=== PATIENT | male | born 1935 | race Caucasian/White ===

== ENCOUNTER 2017-10-21 10:49 | Observation (INO) | payer MEDICARE, BC ==
[~2017-10-21] VITALS: Ht 186.7 cm; Wt 82.2 kg
[2017-10-21] VITALS (9 sets, daily range): BP systolic 126–167; BP diastolic 59–79; PULSE 55–78; RESP 14–20; TEMP 97.7–98.4; O2SAT 96–98
[~2017-10-21 10:49] MED LIST: ASPI81 PO; FISH1000 PO; METH1TAB29 PO; METR1GEL2 EX; NIAS10004 PO; OMEP20CA5 PO; OYST500T77 PO; VASE1025 PO; ZOCO40TA PO
[2017-10-21] MEDS ORDERED: SODIUM CHLORIDE 0.9% FLUSH 10 ML FLUSH IVF PRN (12:00)
--- NOTE | 2017-10-21 12:02 | PD ---
HPI Chief Complaint: Cold / Flu Symptoms Time Seen by Provider: 11:30 Travel History International Travel<30 days: No Contact w/Intl Traveler<30days: No Traveled to known affect area: No History of Present Illness HPI 82-year-old male here for evaluation of generalized malaise, epigastric abdominal discomfort, possible syncopal episode. Patient reports having epigastric discomfort for the last month ever since taking diclofenac. His primary care physician and advised that he stop this medication and start taking Zantac. Today he was found on the floor by his and the patient is unsure how he got to the floor. He denies injuring himself. He denies any history of cardiac disease. He does have some epigastric discomfort, but denies chest pain. No fevers or recent illness. No melena or hematochezia. PFSH Past Medical History Arthritis: Yes Cancer: Yes (PROSTATE 2006) High Cholesterol: Yes Diabetes: No GERD: Yes Glaucoma: No Hepatitis: No Hiatal Hernia: No Hypertension: Yes Inguinal Hernia: Yes (BILAT REPAIR) Medical other: Yes (GERD) Thyroid Disease: No Tetanus Vaccination: > 5 Years Influenza Vaccination: Yes Past Surgical History Abdominal Surgery: Yes (hernia repair BILAT GROINS) Cardiac Surgery: No Ear Surgery: No Endocrine Surgery: No Eye Surgery: Yes (CATARACT BOTH EYES REPAIRED) Genitourinary Surgery: Yes ( PROSTATE REMOVAL R/T CANCER) Gynecologic Surgery: No Neurologic Surgery: Yes (CERVICAL & LUMBAR DISKECTOMIES) Oral Surgery: Yes (T & A) Pacemaker: No Thoracic Surgery: No Tonsillectomy: Yes Other Surgery: Yes (KAREEM INGUINAL HERNIA REPAIR) Social History Alcohol Use: Yes (OCCAS. ) Tobacco Use: No Substance Use: No Allergies-Medications (Allergen,Severity, Reaction): Coded Allergies: amoxicillin (Verified Adverse Reaction, Intermediate, DIZZINESS, 10/21/17) clavulanic acid (Verified Adverse Reaction, Intermediate, DIZZINESS, ) Reported Meds & Prescriptions Reported Meds & Active Scripts Active Reported Zantac (Ranitidine HCl) 150 Mg Tab 75 Mg PO DAILY Vitamin B-12 (Cyanocobalamin) 1,000 Mcg Tab 1,000 Mcg PO DAILY Triamcinolone Topical 0.025 % Oint 1 Applic TOPICAL BID Simvastatin 40 Mg Tab 1.5 Tab PO HS Sertraline (Sertraline HCl) 50 Mg Tab 50 Mg PO DAILY Probiotic (Lactobacillus Acidophilus) 10 Billion Cell Cap 1 Cap PO TIDAC Preservision Areds (Multiple Vitamins W/ Minerals) 1 Tab 1 Tab PO DAILY [place]-3 Fish Oil/Vitamin (Fish Oil-Cholecalciferol) 1,000-1,000 Mg Cap 1 Cap PO BID Metronidazole Topical 0.75 % Lot 1 Applic TOPICAL BID Losartan-Hydrochlorothiazide 50-12.5 Mg Tab 1 Tab PO DAILY Fluticasone Nasal [place] 50 Mcg/Act Naspr 100 Mcg EACH NARE DAILY PRN 50 mcg/spray Donepezil 10 Mg Tab 10 Mg PO HS Diclofenac Sodium DR (Diclofenac Sodium) 50 Mg Tabdr 50 Mg PO BID PRN Bladder 2.2 (Nutritional Supplements) 200 Mcg-5 Mg-250 Mcg Tab 1 Tab PO DAILY Aspirin Low Dose (Aspirin) 81 Mg Chew 81 Mg CHEW DAILY Review of Systems Except as stated in HPI: all other systems reviewed are Neg Physical Exam Narrative GENERAL: Well-developed, well-nourished, awake, alert, comfortable, no apparent distress. SKIN: Focused skin assessment warm/dry. HEAD: Atraumatic. Normocephalic. EYES: Pupils equal and round. No scleral icterus. No injection or drainage. ENT: No nasal bleeding or discharge. Mucous membranes pink and moist. NECK: Trachea midline. No JVD. CARDIOVASCULAR: Regular rate and rhythm. RESPIRATORY: No accessory muscle use. Clear to auscultation. Breath sounds equal bilaterally. GASTROINTESTINAL: Abdomen soft, nondistended. Mild epigastric tenderness without peritoneal signs. Normal bowel sounds. No hernias. MUSCULOSKELETAL: No obvious deformities. No clubbing. No cyanosis. No edema. NEUROLOGICAL: Awake and alert. No obvious cranial nerve deficits. Motor grossly within normal limits. Normal speech. PSYCHIATRIC: Appropriate mood and affect; insight and judgment normal. Data Data Last Documented VS Vital Signs Date Time Temp Pulse Resp B/P (MAP) Pulse Ox O2 Delivery O2 Flow Rate FiO2 10/21/17 13:05 59 14 145/62 (89) 97 Room Air 10/21/17 11:08 97.7 Orders Orders Electrocardiogram (10/21/17 11:54) Complete Blood Count With Diff (10/21/17 11:54) Comprehensive Metabolic Panel (10/21/17 11:54) Ckmb (Isoenzyme) Profile (10/21/17 11:54) Troponin I (10/21/17 11:54) Act Partial Throm Time (Ptt) (10/21/17 11:54) Prothrombin Time / Inr (Pt) (10/21/17 11:54) Urinalysis - C+S If Indicated (10/21/17 11:54) Chest, Single Ap (10/21/17 11:54) Ct Brain W/O Iv Contrast(Rout) (10/21/17 11:54) Ecg Monitoring (10/21/17 11:54) Iv Access Insert/Monitor (10/21/17 11:54) Oximetry (10/21/17 11:54) Sodium Chloride 0.9% Flush (Ns Flush) (10/21/17 12:00) Influenzae A/B Antigen (10/21/17 11:54) Lipase (10/21/17 11:54) Ct Abd/Pel W Iv Contrast(Rout) (10/21/17 11:54) CKMB (10/21/17 12:10) CKMB% (10/21/17 12:10) Cath For Specimen (10/21/17 12:52) Iohexol 350 Inj (Omnipaque 350 Inj) (10/21/17 13:22) Labs Laboratory Tests Test 10/21/17 12:10 10/21/17 13:00 White Blood Count 7.8 TH/MM3 Red Blood Count 4.05 MIL/MM3 Hemoglobin 13.0 GM/DL Hematocrit 38.7 % Mean Corpuscular Volume 95.6 FL Mean Corpuscular Hemoglobin 32.1 PG Mean Corpuscular Hemoglobin Concent 33.6 % Red Cell Distribution Width 12.5 % Platelet Count 159 TH/MM3 Mean Platelet Volume 7.6 FL Neutrophils (%) (Auto) 94.6 % Lymphocytes (%) (Auto) 3.2 % Monocytes (%) (Auto) 1.7 % Eosinophils (%) (Auto) 0.1 % Basophils (%) (Auto) 0.4 % Neutrophils # (Auto) 7.5 TH/MM3 Lymphocytes # (Auto) 0.2 TH/MM3 Monocytes # (Auto) 0.1 TH/MM3 Eosinophils # (Auto) 0.0 TH/MM3 Basophils # (Auto) 0.0 TH/MM3 CBC Comment DIFF FINAL Differential Comment Prothrombin Time 10.4 SEC Prothromb Time International Ratio 1.0 RATIO Activated Partial Thromboplast Time 24.0 SEC Blood Urea Nitrogen 28 MG/DL Creatinine 0.77 MG/DL Random Glucose 153 MG/DL Total Protein 7.1 GM/DL Albumin 3.8 GM/DL Calcium Level 8.6 MG/DL Alkaline Phosphatase 72 U/L Aspartate Amino Transf (AST/SGOT) 31 U/L Alanine Aminotransferase (ALT/SGPT) 31 U/L Total Bilirubin 0.5 MG/DL Sodium Level 135 MEQ/L Potassium Level 4.0 MEQ/L Chloride Level 100 MEQ/L Carbon Dioxide Level 28.8 MEQ/L Anion Gap 6 MEQ/L Estimat Glomerular Filtration Rate 97 ML/MIN Total Creatine Kinase 242 U/L Creatine Kinase MB 6.4 NG/ML Troponin I LESS THAN 0.02 NG/ML Lipase 283 U/L Urine Collection Type VOIDED Urine Color YELLOW Urine Turbidity CLEAR Urine pH 6.0 Urine Specific [place] 1.024 Urine Protein NEG mg/dL Urine Glucose (UA) NEG mg/dL Urine Ketones TRACE mg/dL Urine Occult Blood NEG Urine Nitrite NEG Urine Bilirubin NEG Urine Leukocyte Esterase NEG Urine WBC 0-2 /hpf Urine Squamous Epithelial Cells 0-3 /hpf Urine Mucus FEW /lpf Microscopic Urinalysis Comment CULT NOT INDICATED MDM Medical Decision Making Medical Screen Exam Complete: Yes Emergency Medical Condition: Yes Interpretation(s) EKG: Sinus, rate 52, normal axis, normal intervals, no acute ischemic abnormality. Differential Diagnosis Syncope, dysrhythmia, electrolyte abnormality, intra-abdominal abnormality, anemia, intracranial abnormality, UTI Narrative Course Initial vital signs show heart rate 55, blood pressure 167/71, pulse ox 98% on room air, oral temp of 97.7F. CBC: WBC 7.8, hemoglobin 13, hematocrit 38.7, platelets 159, neutrophils 74.6%. CMP is unremarkable. Lipase is 283. UA is not suggestive of UTI. Chest x-ray: No acute disease. CT head: CONCLUSION: Negative for acute process. CT abdomen pelvis: CONCLUSION: 1. Large amount of stool within the rectum suggesting possible fecal impaction. 2. Minimal aneurysmal dilation of the abdominal aorta at 3 cm. 3. Punctate granulomatous calcifications within the spleen. 4. No free air or free fluid identified. No findings to indicate bowel obstruction are evident. Patient was made aware of all findings. He is resting comfortably. He does have moderate coronary calcifications seen on the CT of his abdomen. Sounds as though he may have had a syncopal episode today. His EKG shows sinus bradycardia. Because of this he will be admitted for further treatment and evaluation. His television cable installer is Dr. Tracey. Diagnosis Primary Impression: Syncope Qualified Codes: R55 - Syncope and collapse Additional Impressions: Bradycardia Chest pain Qualified Codes: R07.9 - Chest pain, unspecified Admitting Information Admitting Physician Requests: Shaka Bernal MD Oct 21, 2017 12:02
[2017-10-21 12:26] LABS: AUTOMATED NEUTROPHIL # 7.5 TH/MM3 (1.8-7.7); BASOPHIL % 0.4 % (0.0-2.0); EOSINOPHIL % 0.1 % (0.0-4.0); HEMATOCRIT 38.7 % (39.0-51.0); LYMPH % 3.2 % (9.0-44.0); LYMPHOCYTE # 0.2 TH/MM3 (1.0-4.8); MEAN CELL VOLUME 95.6 FL (80.0-100.0); MEAN CORPUSCULAR HEMOGLOBIN 32.1 PG (27.0-34.0); MEAN CORPUSCULAR HGB CONC 33.6 % (32.0-36.0); MEAN PLATELET VOLUME 7.6 FL (7.0-11.0); MONO % 1.7 % (0.0-8.0); MONOCYTE # 0.1 TH/MM3 (0-0.9); NEUT % 94.6 % (16.0-70.0); PLATELET COUNT 159 TH/MM3 (150-450); RED BLOOD COUNT 4.05 MIL/MM3 (4.50-5.90); RED CELL DISTRIBUTION WIDTH 12.5 % (11.6-17.2); WHITE BLOOD COUNT 7.8 TH/MM3 (4.0-11.0)
[2017-10-21 12:38] LABS: CHLORIDE 100 MEQ/L (98-107); SODIUM (NA) 135 MEQ/L (136-145)
[2017-10-21 12:41] LABS: CALCIUM 8.6 MG/DL (8.5-10.1)
--- NOTE | 2017-10-21 12:41 | RADRPT ---
EXAM DATE/TIME: 10/21/2017 12:23 [facility] COMPARISON: No previous studies available for comparison. INDICATIONS : Vomiting and Dizzy MEDICAL HISTORY : None. SURGICAL HISTORY : None. ENCOUNTER: Initial ACUITY: 1 day PAIN SCORE: 0/10 LOCATION: chest FINDINGS: A single view of the chest demonstrates the lungs to be symmetrically aerated without evidence of mas s, infiltrate or effusion. The cardiomediastinal contours are unremarkable. Osseous structures are intact. CONCLUSION: No acute disease. Remigio Mulligan MD on October 21, 2017 at 12:39 Board Certified Radiologist. This report was verified electronically.
[2017-10-21 12:42] LABS: ALBUMIN 3.8 GM/DL (3.4-5.0); BICARBONATE 28.8 MEQ/L (21.0-32.0); BLOOD UREA NITROGEN 28 MG/DL (7-18); GLUCOSE,RANDOM 153 MG/DL (74-106); PROTHROMBIN TIME - PATIENT 10.4 SEC (9.8-11.6)
[2017-10-21 12:45] LABS: ALT (GPT) 31 U/L (12-78); AST (GOT) 31 U/L (15-37); CREATININE 0.77 MG/DL (0.60-1.30); GLOMERULAR FILTRATION RATE 97 ML/MIN (>89)
[2017-10-21 12:46] LABS: TOTAL BILIRUBIN ADULT 0.5 MG/DL (0.2-1.0); TOTAL PROTEIN 7.1 GM/DL (6.4-8.2)
[2017-10-21 12:47] LABS: ALKALINE PHOSPHATASE 72 U/L (45-117)
[2017-10-21 12:50] LABS: TROPONIN I LESS THAN 0.02 NG/ML (0.02-0.05)
[2017-10-21] MEDS ORDERED: METR0.753 TOPICAL (13:00)
[2017-10-21] MEDS ORDERED: SERT-132 PO (13:00)
[2017-10-21] MEDS ORDERED: LACTCAP8 PO (13:00)
[2017-10-21] MEDS ORDERED: ASPI81CH6 CHEW (13:00)
[2017-10-21] MEDS ORDERED: DONE10TA7 PO (13:00)
[2017-10-21] MEDS ORDERED: OCUVTAB4 PO (13:00)
[2017-10-21] MEDS ORDERED: OMEGCAP PO (13:00)
[2017-10-21] MEDS ORDERED: BLADTAB PO (13:00)
[2017-10-21] MEDS ORDERED: FLUT50SP EACH NARE (13:00)
[2017-10-21] MEDS ORDERED: DICL50TA3 PO (13:00)
[2017-10-21] MEDS ORDERED: ZANT150T2 PO (13:00)
[2017-10-21] MEDS ORDERED: VITA10002 PO (13:00)
[2017-10-21] MEDS ORDERED: TRIA0.022 TOPICAL (13:00)
[2017-10-21] MEDS ORDERED: SIMV40TA PO (13:00)
[2017-10-21] MEDS ORDERED: LOSA50TA2 PO (13:00)
[2017-10-21 13:10] LABS: BILIRUBIN, URINE NEG (NEG); BLOOD, URINE NEG (NEG); GLUCOSE,URINE NEG (NEG); KETONE, URINE TRACE mg/dL (NEG); NITRITE,URINE NEG (NEG); URINE LEUKOCYTE ESTERASE NEG (NEG)
[2017-10-21] MEDS ORDERED: IOHEXOL 350 MG/ML 10 ML VIAL (for RAD DIAG) IVCONTRAST ONE (13:22)
[2017-10-21 13:25] LABS: URINE COLOR YELLOW (YELLW/STRAW)
[2017-10-21 13:26] LABS: MUCUS URINE FEW /lpf (OCC); SQUAMOUS EPITHELIAL CELL URINE 0-3 /hpf (0-5); WBC, URINE 0-2 /hpf (0-5)
--- NOTE | 2017-10-21 13:37 | RADRPT ---
EXAM DATE/TIME: 10/21/2017 13:13 [facility] COMPARISON: No previous studies available for comparison. INDICATIONS : Nausea, vomiting and dizziness. RADIATION DOSE: 62.06 CTDIvol (mGy) MEDICAL HISTORY : Hypertension. Carcinoma, prostate. Gastroesophageal reflux disease. SURGICAL HISTORY : Inguinal hernia repair. Prostatectomy.Spine surgery. ENCOUNTER: Subsequent ACUITY: 2 days PAIN SCALE: 0/10 LOCATION: cranial TECHNIQUE: Multiple contiguous axial images were obtained of the head. Using automated exposure control and adj ustment of the mA and/or kV according to patient size, radiation dose was kept as low as reasonably a chievable to obtain optimal diagnostic quality images. DICOM format image data is available electro nically for review and comparison. FINDINGS: CEREBRUM: The ventricles are normal for age. No evidence of midline shift, mass lesion, hemorrhage or acute in farction. No extra-axial fluid collections are seen. POSTERIOR FOSSA: The cerebellum and brainstem are intact. The 4th ventricle is midline. The cerebellopontine angle i s unremarkable. EXTRACRANIAL: The visualized portion of the orbits is intact. SKULL: The calvaria is intact. No evidence of skull fracture. CONCLUSION: Negative for acute process. Jose Bullock MD FACR on October 21, 2017 at 13:34 Board Certified Radiologist. This report was verified electronically.
--- NOTE | 2017-10-21 13:39 | RADRPT ---
EXAM DATE/TIME: 10/21/2017 13:18 [facility] COMPARISON: CT BRAIN W/O CONTRAST, October 21, 2017, 13:13. INDICATIONS : Nausea, vomiting and dizziness. Non-specific abdominal pain. IV CONTRAST: 95 cc Omnipaque 350 (iohexol) IV ORAL CONTRAST: No oral contrast ingested. RADIATION DOSE: 9.43 CTDIvol (mGy) MEDICAL HISTORY : Hypertension. Carcinoma, prostate. Gastroesophageal reflux disease. SURGICAL HISTORY : Inguinal hernia repair. Prostatectomy.Spine surgery. ENCOUNTER: Initial ACUITY: 2 days PAIN SCALE: 3/10 LOCATION: pelvis abdomen TECHNIQUE: Volumetric scanning of the abdomen and pelvis was performed. Using automated exposure control and ad justment of the mA and/or kV according to patient size, radiation dose was kept as low as reasonably achievable to obtain optimal diagnostic quality images. DICOM format image data is available electro nically for review and comparison. FINDINGS: Imaging through the lung bases demonstrates chronic interstitial changes suggesting COPD. There is a small hiatal hernia. There is moderate atherosclerotic plaquing in the coronary arteries. The appearance of the liver is within normal limits. There are punctate granulomatous calcifications within the spleen. The pancreas, adrenal glands and kidneys are unremarkable in appearance. No free intraperitoneal air or free intraperitoneal fluid is seen within the upper abdomen. The abdominal aorta is slightly aneurysmal in the infrarenal segment measuring 3 cm.. There is mild a therosclerotic plaquing. No retroperitoneal adenopathy is evident. The visualized loops of small large bowel the upper abdomen are unremarkable. Imaging through the pelvis is provided. The exam demonstrates a large amount of stool within the rect um. There is no free fluid within the pelvis. No iliac or inguinal adenopathy is seen. The visualized bony structures demonstrate degenerative changes but are otherwise intact. CONCLUSION: 1. Large amount of stool within the rectum suggesting possible fecal impaction. 2. Minimal aneurysmal dilation of the abdominal aorta at 3 cm. 3. Punctate granulomatous calcifications within the spleen. 4. No free air or free fluid identified. No findings to indicate bowel obstruction are evident. Richard Bullock MD on October 21, 2017 at 13:32 Board Certified Radiologist. This report was verified electronically.
[2017-10-21] MEDS ORDERED: NITROGLYCERIN 0.4 MG SL 25 TABS/BTL SL PRN (15:15)
[2017-10-21] MEDS ORDERED: SODIUM CHLORID 0.9% 500 ML INJ 500 ML IV ONE (16:15)
[2017-10-21] MEDS ORDERED: SODIUM CHLOR 0.9% 1000 ML INJ 1,000 ML IV ONE (16:15)
--- NOTE | 2017-10-21 16:15 | HHI.HP ---
[facility] Roel Christine M.D. Admission Diagnosis syncope, bradycardia, chest pain Diagnoses: Chief Complaint: Syncope Travel History International Travel<30 Days: No Contact w/Intl Traveler <30 Da: No Traveled to Known Affected Are: No History of Present Illness 82-year-old white male brought to the hospital due to syncope. Patient reports having some nausea last night, went over to the restroom and felt very lightheaded and thus he lowered himself to the floor and a crawling position so that he does not fall and strike his head. He was able to call over back to the bedroom and eventually get up and go back to bed with resolution of the nausea. This morning a similar incident happened when he was walking and felt nausea again;but this time he he has a gap in memory and only recalls waking up on the floor with his looking at him. That is when the etc. bring her to the hospital. The patient denies any chest pain or levy shortness of breath. He does report actually walking 2 miles yesterday with his dogs during the daytime prior to the nighttime incidents. He denies any coronary artery disease, says he had a negative stress test 2-3 years ago which was normal. He does take blood pressure medication including a diuretic. EKG which I independently reviewed showed mild sinus bradycardia in the 50s. Review of Systems Except as stated in HPI: all other systems reviewed are Neg Past Family Social History Allergies: Coded Allergies: amoxicillin (Verified Adverse Reaction, Intermediate, DIZZINESS, 10/21/17) clavulanic acid (Verified Adverse Reaction, Intermediate, DIZZINESS, ) Physical Exam Vital Signs Vital Signs Date Time Temp Pulse Resp B/P (MAP) Pulse Ox O2 Delivery O2 Flow Rate FiO2 10/21/17 14:50 77 14 126/62 (83) 98 Room Air 10/21/17 13:05 59 14 145/62 (89) 97 Room Air 10/21/17 12:15 98 Room Air 10/21/17 11:08 97.7 55 16 167/71 (103) 98 Physical Exam GENERAL: This is a well-nourished, well-developed patient, in no apparent distress. SKIN: No rashes, ecchymoses or lesions. Cool and dry. HEAD: Atraumatic. Normocephalic. EYES: Extraocular motions intact. No scleral icterus. No injection or drainage. ENT: Nose without bleeding, purulent drainage or septal hematoma. NECK: Trachea midline. No JVD or lymphadenopathy. Supple, nontender, no meningeal signs. CARDIOVASCULAR: Regular rate and rhythm without murmurs, gallops, or rubs. RESPIRATORY: Clear to auscultation. Breath sounds equal bilaterally. No wheezes , rales, or rhonchi. GASTROINTESTINAL: Abdomen soft, non-tender, nondistended. MUSCULOSKELETAL: Extremities without clubbing, cyanosis, or edema. NEUROLOGICAL: Awake and alert. Five out of 5 muscle strength in all muscle groups. Normal speech. able to stand, - romberg Laboratory Laboratory Tests Test 10/21/17 12:10 10/21/17 13:00 White Blood Count 7.8 Red Blood Count 4.05 Hemoglobin 13.0 Hematocrit 38.7 Mean Corpuscular Volume 95.6 Mean Corpuscular Hemoglobin 32.1 Mean Corpuscular Hemoglobin Concent 33.6 Red Cell Distribution Width 12.5 Platelet Count 159 Mean Platelet Volume 7.6 Neutrophils (%) (Auto) 94.6 Lymphocytes (%) (Auto) 3.2 Monocytes (%) (Auto) 1.7 Eosinophils (%) (Auto) 0.1 Basophils (%) (Auto) 0.4 Neutrophils # (Auto) 7.5 Lymphocytes # (Auto) 0.2 Monocytes # (Auto) 0.1 Eosinophils # (Auto) 0.0 Basophils # (Auto) 0.0 CBC Comment DIFF FINAL Differential Comment Prothrombin Time 10.4 Prothromb Time International Ratio 1.0 Activated Partial Thromboplast Time 24.0 Blood Urea Nitrogen 28 Creatinine 0.77 Random Glucose 153 Total Protein 7.1 Albumin 3.8 Calcium Level 8.6 Alkaline Phosphatase 72 Aspartate Amino Transf (AST/SGOT) 31 Alanine Aminotransferase (ALT/SGPT) 31 Total Bilirubin 0.5 Sodium Level 135 Potassium Level 4.0 Chloride Level 100 Carbon Dioxide Level 28.8 Anion Gap 6 Estimat Glomerular Filtration Rate 97 Total Creatine Kinase 242 Creatine Kinase MB 6.4 Troponin I LESS THAN 0.02 Lipase 283 Urine Collection Type VOIDED Urine Color YELLOW Urine Turbidity CLEAR Urine pH 6.0 Urine Specific [place] 1.024 Urine Protein NEG Urine Glucose (UA) NEG Urine Ketones TRACE Urine Occult Blood NEG Urine Nitrite NEG Urine Bilirubin NEG Urine Leukocyte Esterase NEG Urine WBC 0-2 Urine Squamous Epithelial Cells 0-3 Urine Mucus FEW Microscopic Urinalysis Comment CULT NOT INDICATED Date/Time Source Procedure Growth Status 10/21/17 12:10 Nasal Washing Influenza Types A,B Antigen (DIXIE) - Final NEGATIVE FOR FLU A AND B ANTIGEN.... Complete Result Diagram: 10/21/17 1210 10/21/17 1210 Imaging Last Impressions Head CT 10/21/17 1154 Impressions: Service Date/Time: Saturday, October 21, 2017 13:13 - CONCLUSION: Negative for acute process. Jose Bullock MD FACR Chest X-Ray 10/21/17 1154 Signed Impressions: Service Date/Time: Saturday, October 21, 2017 12:23 - CONCLUSION: No acute disease. Remigio Mulligan MD Abdomen/Pelvis CT 10/21/17 1154 Impressions: Service Date/Time: Saturday, October 21, 2017 13:18 - CONCLUSION: 1. Large amount of stool within the rectum suggesting possible fecal impaction. 2. Minimal aneurysmal dilation of the abdominal aorta at 3 cm. 3. Punctate granulomatous calcifications within the spleen. 4. No free air or free fluid identified. No findings to indicate bowel obstruction are evident. MD Fidelia Mckeoni VTE Risk Assessment Caprini VTE Risk Assessment: Mod/High Risk (score >= 2) Caprini Risk Assessment Model Point Value = 1 Point Value = 2 Point Value = 3 Point Value = 5 Age 41-60 Minor surgery BMI > 25 kg/m2 Swollen legs Varicose veins or History of unexplained or recurrent spontaneous Oral contraceptives or hormone replacement Sepsis (< 1 month) Serious lung disease, including pneumonia (< 1 month) Abnormal pulmonary function Acute myocardial infarction Congestive heart failure (< 1 month) History of inflammatory bowel disease Medical patient at bed rest Age 61-74 Arthroscopic surgery Major open surgery (> 45 min) Laparoscopic surgery (> 45 min) Malignancy Confined to bed (> 72 hours) Immobilizing plaster cast Central venous access Age >= 75 History of VTE Family history of VTE Factor V Leiden Prothrombin [id number] Lupus anticoagulant Anticardiolipin antibodies Elevated serum homocysteine Heparin-induced thrombocytopenia Other congenital or acquired thrombophilia Stroke (< 1 month) Elective arthroplasty Hip, pelvis, or leg fracture Acute spinal cord injury (< 1 month) Prophylaxis Regimen Total Risk Factor Score Risk Level Prophylaxis Regimen 0-1 Low Early ambulation 2 Moderate Order ONE of the following: *Sequential Compression Device (SCD) *Heparin 5000 units SQ BID 3-4 Higher Order ONE of the following medications: *Heparin 5000 units SQ TID *Enoxaparin/Lovenox 40 mg SQ daily (WT < 150 kg, CrCl > 30 mL/min) *Enoxaparin/Lovenox 30 mg SQ daily (WT < 150 kg, CrCl > 10-29 mL/min) *Enoxaparin/Lovenox 30 mg SQ BID (WT < 150 kg, CrCl > 30 mL/min) AND/OR *Sequential Compression Device (SCD) 5 or more Highest Order ONE of the following medications: *Heparin 5000 units SQ TID (Preferred with Epidurals) *Enoxaparin/Lovenox 40 mg SQ daily (WT < 150 kg, CrCl > 30 mL/min) *Enoxaparin/Lovenox 30 mg SQ daily (WT < 150 kg, CrCl > 10-29 mL/min) *Enoxaparin/Lovenox 30 mg SQ BID (WT < 150 kg, CrCl > 30 mL/min) AND *Sequential Compression Device (SCD) Assessment and Plan Assessment and Plan syncope -Etiology could be possible sinus bradycardia while BP is stable here, monitor w / telemetry. will obtain orthostatic V/S pre and post NS bolus. - TSH wnl. f/u on mg and phos. -I attempted to call tricot knitter by phone but [place]. Official cardiology consult placed. - may get holter upon discharge SCDs in case any intervention is anticipated In total, the time spent with the patient was over 35 minute of which more than 50% of patient care was spent discussing his or her care and counseling the patient and corresponding caregivers. Valdemar Galindo MD Oct 21, 2017 16:14
[2017-10-21 16:38] LABS: MAGNESIUM 2.3 MG/DL (1.5-2.5)
[2017-10-21 16:42] LABS: PHOSPHORUS 3.5 MG/DL (2.5-4.9)
[2017-10-21] MEDS ORDERED: ATORVASTATIN 40 MG TAB PO SCH (21:00)
[2017-10-21] MEDS ORDERED: DONEPEZIL HCL 5 MG TAB PO SCH (21:00)
[2017-10-21] MEDS: SERTRALINE HCL 50 MG TAB PO SCH (22:14)
[2017-10-22] VITALS: BP 150/66; PULSE 62; RESP 20; TEMP 97.5; O2SAT 95
[2017-10-22 04:00] VITALS: BP 136/63; PULSE 59; RESP 20; TEMP 97.7; O2SAT 95
--- NOTE | 2017-10-22 07:33 | MB ---
cc: NASEEM WANG DATE OF CONSULTATION 10/21/2017 REASON FOR CONSULTATION Mr. Moser is an 82-year-old white male patient of Dr. Tracey who was brought to the hospital after he developed dizziness and possible brief loss of consciousness. He felt nauseated and went back to vomit. He developed dizziness and light headedness. He then went back and lowered himself on the ground. He then went to sleep and after this happened he felt nauseated again and woke up on the floor with his looking at him. He did not have any chest pain or shortness of breath. He is active, walking his dog. He had a stress test within the last three weeks in Dr. Tracey's office which was unremarkable. PAST MEDICAL HISTORY Positive for: 1. Arthritis 2. Gastroesophageal reflux disease 3. Bilateral hernia surgery 4. Hypertension 5. Prostate cancer 6. Dyslipidemia 7. Cataract surgery 8. Prostatectomy 9. Cervical and lumbar diskectomy 10. T&A MEDICATIONS Include: 1. Aspirin 2. Diclofenac 3. Donepezil 4. Fluticasone 5. Losartan 6. Hydrochlorothiazide 7. Metronidazole 8. [place] 3 9. Preservation probiotic 10. Septra 11. Simvastatin 12. Triamcinolone 13. Vitamin B12 14. Zantac ALLERGIES AMOXICILLIN, CLAVULANIC ACID SOCIAL HISTORY The patient does not smoke, but he used to smoke in the past. He has not been drinking alcohol recently. FAMILY HISTORY Positive for heart disease in his father. Followup Otherwise negative. PHYSICAL EXAMINATION Blood pressure 153/73, pulse 70. HEENT: Negative. NECK: 2+ carotid upstrokes. No bruits. LUNGS: Clear. HEART: Regular with a 1/6 systolic murmur on the left. No gallop. ABDOMEN: Soft, no bruits. EXTREMITIES: Without edema. 2+ distal pulses. NEUROLOGIC: Grossly nonfocal. EKG was reviewed and showed mild sinus bradycardia at 52 beats per minute, normal axis intervals, no acute changes. LABORATORY DATA Hemoglobin 13.0. Potassium 4.0, creatinine 0.8, AST, ALT normal, troponin less than 0.02, CK 242, TSH 2.1. DIAGNOSIS 1. Syncope 2. Hypertension 3. Dyslipidemia 4. Gastroesophageal reflux disease 5. Arthritis DISPOSITION/COMMENT Symptoms are suggestive of vagal syncope. His CT scan shows possible fecal impaction. He will be monitored on telemetry overnight. If he has no further symptoms, he can be discharged home and I will see him back for followup in our office shortly after discharge. We will then place outpatient telemetry to evaluate for any significant arrhythmias. He will then follow up Dr. Tracey, his primary contract administrative assistant in his office as scheduled. MD ALEXANDRA Ellis/EMMANUEL /8:18 PM /7:12 AM
[2017-10-22 08:47] VITALS: BP 138/73; PULSE 60; RESP 17; TEMP 97.5; O2SAT 97
[2017-10-22] MEDS: SERTRALINE HCL 50 MG TAB PO SCH (09:07)
[2017-10-22] MEDS ORDERED: DULC10SU3 RECTAL (10:17)
[2017-10-22] MEDS ORDERED: MIRA3350 PO (10:17)
--- NOTE | 2017-10-22 10:18 | HHI.DCPOC ---
Discharge Care Plan Diagnosis: (1) Vasovagal syncope (2) Syncope Goals to Promote Your Health * To prevent worsening of your condition and complications * To maintain your health at the optimal level Directions to Meet Your Goals Take your medications as prescribed Follow your dietary instruction Follow activity as directed Keep your appointments as scheduled Take your immunizations and boosters as scheduled If your symptoms worsen call your PCP, if no PCP go to Urgent Care Center or Emergency Room Smoking is Dangerous to Your Health. Avoid second hand smoke Call the 24-hour hour crisis hotline for domestic abuse at Valdemar Galindo MD Oct 22, 2017 10:18
--- NOTE | 2017-10-22 10:38 | HHI.PR ---
Subjective Remarks RN denies any deterioration since last night. pt says he feels much better since the bolus last night. hasn't had any further episodes. Objective Vital Signs Date Time Temp Pulse Resp B/P (MAP) Pulse Ox O2 Delivery O2 Flow Rate FiO2 10/22/17 08:47 97.5 60 17 138/73 (94) 97 10/22/17 04:00 97.7 59 20 136/63 (87) 95 10/22/17 00:00 97.5 62 20 150/66 (94) 95 10/21/17 20:15 78 10/21/17 20:00 98.4 65 20 166/79 (108) 96 10/21/17 19:40 72 18 98 10/21/17 19:19 71 18 10/21/17 19:12 71 18 157/73 (101) 98 Room Air 10/21/17 17:30 70 18 133/59 (83) 84 14 142/67 (92) 80 16 159/62 (94) 10/21/17 16:00 65 16 137/64 (88) 85 14 139/73 (95) 92 141/70 (93) 10/21/17 14:50 77 14 126/62 (83) 98 Room Air 10/21/17 13:05 59 14 145/62 (89) 97 Room Air 10/21/17 12:15 98 Room Air 10/21/17 11:08 97.7 55 16 167/71 (103) 98 I/O 10/21/17 10/21/17 10/21/17 10/22/17 10/22/17 10/22/17 07:00 15:00 23:00 07:00 15:00 23:00 Intake Total 1500 ml 200 ml Output Total 600 ml Balance 900 ml 200 ml Intake Oral 200 ml IV Total 1500 ml Output Urine Total 600 ml # Voids 2 2 # Bowel Movements 1 1 Result Diagram: 10/21/17 1210 10/21/17 1210 Objective Remarks hrt sounds: rrr, no murmurs CTA x 2 unlabored A/P Assessment and Plan syncope -I independently reviewed the telemetry and see only mild sinus bradycardia while the patient is sleeping. Agree with cardiology that this is most likely vasovagal syncope sTSH magnesium and phosphorus are all within normal limits. Will discharge with Holter monitor. Valdemar Galindo MD Oct 22, 2017 10:37
[2017-10-22 15:50] VITALS: PULSE 60
--- NOTE | 2017-10-23 08:09 | EKG ---
Date Performed: 10/21/2017 Time Performed: 12:01:52 PTAGE: 82 years EKG: SINUS BRADYCARDIA Compared to previous tracing sinus rate is slower BORDERLINE ECG PREVIOUS TRACING : 10/11/2010 07.22 DOCTOR: Evans Harden Interpretating Date/Time 10/23/2017 08:07:46
--- NOTE | 2017-10-24 14:47 | HM ---
Date Performed: 10/22/2017 Time Performed: 16:41:00 HOOKUP DATE: 10/22/17 04:41:00 PM Tue ANALYSIS START TIME: 10/22/2017 4:46:00 PM ANALYSIS END TIME: 10/23/2017 4:29:40 PM PATIENT AGE: 82 PATIENT HEIGHT PATIENT WEIGHT DRUG LIST PATIENT DIAGNOSIS TEST NARRATIVE: The patient's average heart rate was 66 BPM. Heart rates greater than 120 B PM were noted < 1% of the time. Heart rates less than 50 BPM were noted 2% of the time. No pause s exceeding 2.0 seconds were noted. 5 ventricular ectopics, which represented < 1% of the total b eat count, were noted. The highest ventricular ectopic frequency occurred from 11:00 PM to 12:00 AM Wed. During this time 1 VE(s) occurred. Ventricular ectopics were observed as 5 isolated beat(s) on ly. No couplets or runs were noted. 231 supraventricular ectopics, which represented < 1% of the total beat count, were noted. The highest supraventricular ectopic frequency occurred from 12:00 AM to 01:00 AM Wed. During this time 21 SVE(s) occurred. No episodes of ST depression (defined as -1.0 mm or more) were noted in channel 1. No episodes of ST depression (defined as -1.0 mm or more) were noted in channel 2. No episodes of ST depression (defined as -1.0 mm or more) were noted in candace nnel 3. TEST INTERPRETATION: Agree with interpretation above as dictated. Signed by : Khoa Castro
== END 2017-10-22 16:49 | disposition home or self-care (01) ==
LOC: PHED 10:49 → PHEDA 14:36 → PH3A 19:40
PROVIDERS: ADMIT Hospitalist; ATTEND Hospitalist
DX: R55 Syncope and collapse (principal); R07.9 Chest pain, unspecified; R00.1 Bradycardia, unspecified; R11.2 Nausea with vomiting, unspecified; R42 Dizziness and giddiness; R53.81 Other malaise; R10.13 Epigastric pain; I10 Essential (primary) hypertension; E78.00 Pure hypercholesterolemia, unspecified; K21.9 Gastro-esophageal reflux disease without esophagitis; M19.90 Unspecified osteoarthritis, unspecified site; Z79.899 Other long term (current) drug therapy; Z79.82 Long term (current) use of aspirin; Z85.46 Personal history of malignant neoplasm of prostate; Z87.891 Personal history of nicotine dependence
CPT/HCPCS: 70450; 71045; 74177; 80053; 80307; 81001; 82550; 82552; 83690; 83735; 84100; 84443; 84484; 85025; 85610; 85730; 87804; 93005; 93225; 93226; 96360; 99285; G0378; J7030; J7040; Q9967